=== PATIENT | female | born 1970 | race Asian ===

== ENCOUNTER 2016-11-30 15:02 | Emergency (ER) | payer OTHER ==
[2016-11-30 15:43] VITALS: BP 140/86; PULSE 53; TEMP 98.5; BMI 23.6
[2016-11-30] MEDS ORDERED: DIPHTH,PERTUSS(ACELL),TET 0.5 ML DISP.SYRIN IM ONE (16:36)
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
== END 2016-11-30 18:32 | disposition home or self-care (01) ==
LOC: JERFT 15:02
PROC: 3E0234Z Introduction of Serum, Toxoid and Vaccine into Muscle, Percutaneous Approach (ICD-10-PCS; principal; 2016-11-30)
DX: S91.312A Laceration without foreign body, left foot, initial encounter (principal); W26.0XXA Contact with knife, initial encounter; Y93.G1 Activity, food preparation and clean up; Y92.030 Kitchen in apartment as the place of occurrence of the external cause
CPT/HCPCS: 73630-TC-LT; 90715; 99281-25

== ENCOUNTER 2019-02-21 14:51 | Observation (INO) | payer OTHER ==
[2019-02-21 15:31] LABS: EOS % 4.8 % (0-4.5); HEMATOCRIT 43.8 % (32.4-45.2); HEMOGLOBIN 14.5 GM/dL (10.7-15.3); LYMPH % 32.3 % (8-40); MCH 32.7 pg (25.7-33.7); MEAN CELL VOLUME 98.8 fl (80-96); MEAN PLT VOLUME 8.2 fl (7.5-11.1); NEUT % 54.9 % (42.8-82.8); PLATELET COUNT 247 K/MM3 (134-434); RBC 4.43 M/mm3 (3.60-5.2); RDW 12.5 % (11.6-15.6); WHITE BLOOD COUNT 5.2 K/mm3 (4.0-10.0)
--- NOTE | 2019-02-21 15:33 | PDOC ---
Rapid Medical Evaluation Chief Complaint: Chest Pain Time Seen by Provider: 02/21/19 15:00 Medical Evaluation: Allergies Allergy/AdvReac Type Severity Reaction Status Date / Time aspirin AdvReac upset Verified 02/21/19 15:03 stomach Vital Signs Temp Pulse Resp BP Pulse Ox 98.2 F 62 19 160/94 100 02/21/19 14:55 02/21/19 14:55 02/21/19 14:55 02/21/19 14:55 02/21/19 14:55 02/21/19 15:30 Pt c/o: LSCP pressure x 3 hrs radiating to left back, no sob, no fever/cough Pt on brief exam: mildly elevated bp, no reproducible cp Pt ordered for: cardiac w/u Pt to proceed to the ED Discharge Disposition - Diagnosis Chest pain - Referrals - Patient Instructions - Post Discharge Activity
[2019-02-21 15:35] LABS: URINE APPEARANCE CLEAR; URINE BILIRUBIN NEGATIVE (NEGATIVE); URINE COLOR YELLOW; URINE GLUCOSE (UA) NEGATIVE (NEGATIVE); URINE KETONE NEGATIVE (NEGATIVE); URINE LEUK ESTERASE TRACE (NEGATIVE); URINE NITRITE NEGATIVE (NEGATIVE); URINE PROTEIN NEGATIVE (NEGATIVE); URINE UROBILINOGEN 0.2 mg/dL (0.2-1.0)
[2019-02-21 15:46] LABS: EPI CELLS 2.8 /HPF (0-5/HPF); URINE RBC 0.5 /hpf (0-4); URINE WBC 3.4 /hpf (0-5)
[2019-02-21 15:47] LABS: HYALINE CASTS 0.73 /lpf (0-8); URINE BACTERIA 5.9 /hpf (NEGATIVE)
[2019-02-21 16:00] LABS: ALBUMIN 4.4 g/dl (3.4-5.0); ALK PHOS 105 U/L (45-117); ANION GAP 8 MMOL/L (8-16); BILIRUBIN,TOTAL 0.6 mg/dL (0.2-1); BLOOD UREA NITROGEN 10.5 mg/dL (7-18); CALCIUM 9.5 mg/dL (8.5-10.1); CHLORIDE 105 mmol/L (98-107); CO2 30 mmol/L (21-32); CREATININE 0.8 mg/dL (0.55-1.3); GLUCOSE,RANDOM 87 mg/dL (74-106); POTASSIUM 3.5 mmol/L (3.5-5.1); SGOT/AST 19 U/L (15-37); SGPT/ALT 32 U/L (13-61); SODIUM 143 mmol/L (136-145)
[2019-02-21] MEDS ORDERED: ASPIRIN 81 MG CHEWABLE TABLETS PO ONE (18:47)
--- NOTE | 2019-02-21 18:54 | PDOC ---
History of Present Illness - General Chief Complaint: Chest Pain Stated Complaint: CHEST PAIN Time Seen by Provider: 02/21/19 15:00 - History of Present Illness Initial Comments: 02/21/19 18:55 48 yo F HTN, HLD, GERD, PUD, presenting with L sided chest pain. States that it began around 1200, pressure sensation in chest, sharp radiation into back. Has been there unremittingly since then. Notably, patient saw her PCP on Feb 16 for "feeling unwell", higher BPs than normal for her, and pounding sensation in back of her head. The EKG at that time showed T wave inversions in the anterior leads concerning for ischemia, and her PCP set up an appointment with a photography manager for this [place] for r/o CAD. However, at that time she was not having the chest pain she is currently experiencing. Has not tried anything for the pain. Denies N/V, diaphoresis, FLANNERY, abd pain, urinary symptoms, fevers/chills, constipation/diarrhea. Endorses mild SOB, worsened by taking deep breath, and recent travel to [place] one month ago. Patient reports extensive cardiac disease and stroke history on both maternal and paternal sides of her family. Past History - Past Medical History Allergies/Adverse Reactions: Allergies Allergy/AdvReac Type Severity Reaction Status Date / Time aspirin AdvReac upset Verified 02/21/19 15:03 stomach Home Medications: Ambulatory Orders Amlodipine Besylate 5 mg PO DAILY 07/01/15 Lovastatin 5 mg PO DAILY 02/21/19 COPD: No HTN: Yes Hypercholesterolemia: Yes - Surgical History Abdominal Surgery: Yes (left ovary removal) - Psycho Social/Smoking Cessation Hx Smoking Status: No Smoking History: Never smoked Have you smoked in the past 12 months: No Number of Cigarettes Smoked Daily: 0 Information on smoking cessation initiated: No Hx Alcohol Use: No Drug/Substance Use Hx: No Substance Use Type: None Hx Substance Use Treatment: No *Physical Exam - Vital Signs Last Vital Signs Temp Pulse Resp BP Pulse Ox 98.2 F 62 19 160/94 100 02/21/19 14:55 02/21/19 14:55 02/21/19 14:55 02/21/19 14:55 02/21/19 14:55 - Physical Exam Comments: 02/21/19 18:59 Gen: well-developed, well-nourished, mild distress Neuro: AAOX4, CN II-XII intact, FTN intact, EOMI, PERRLA, 5/5 strength, SILT HEENT: atraumatic, normocephalic Neck: trachea midline, supple CV: regular rate, regular rhythm, no murmurs, rubs, or gallops Pulm: CTA b/l, no wheezing Abd: soft, non-distended, non-tender MSK: full ROM, intact pulses Extr: no edema, no deformities Skin: warm, dry Heart Score/ECG Review - History History: Moderately suspicious - Electrocardiogram EKG: Non specific repolarization disturbance - Age Age: 45-65 - Risk Factors Risk Factors Heart Score: Yes Hx Hypercholesterolemia, Yes Hx Hypertension, Yes Positive family hx of cardiac disease Based on the list above the patient has:: >/=3 risk factors or Hx atherosclerotic disease - Troponin Troponin: </= normal limit - Score Heart Score - Total: 5 ED Treatment Course - LABORATORY CBC & Chemistry Diagram: 02/21/19 15:15 02/21/19 15:15 - ADDITIONAL ORDERS Additional order review: Laboratory Results 02/21/19 02/21/19 02/21/19 15:15 15:15 15:15 D-Dimer < 215 Sodium Potassium Chloride Carbon Dioxide Anion Gap BUN Creatinine Est GFR (CKD-EPI)AfAm Est GFR (CKD-EPI)NonAf Random Glucose Calcium Total Bilirubin AST ALT Alkaline Phosphatase Creatine Kinase Troponin I Total Protein Albumin Urine Color Yellow Urine Appearance Clear Urine pH 8.0 Ur Specific [place] 1.002 L Urine Protein Negative Urine Glucose (UA) Negative Urine Ketones Negative Urine Blood Negative Urine Nitrite Negative Urine Bilirubin Negative Urine Urobilinogen 0.2 Ur Leukocyte Esterase Trace Urine WBC (Auto) 3.4 Urine RBC (Auto) 0.5 Urine Casts (Auto) 0.73 U Epithel Cells (Auto) 2.8 Urine Bacteria (Auto) 5.9 Urine HCG, Qual Negative 02/21/19 15:15 D-Dimer Sodium 143 Potassium 3.5 Chloride 105 Carbon Dioxide 30 Anion Gap 8 BUN 10.5 Creatinine 0.8 Est GFR (CKD-EPI)AfAm 100.33 Est GFR (CKD-EPI)NonAf 86.57 Random Glucose 87 Calcium 9.5 Total Bilirubin 0.6 AST 19 ALT 32 Alkaline Phosphatase 105 Creatine Kinase 94 Troponin I < 0.02 Total Protein 8.0 Albumin 4.4 Urine Color Urine Appearance Urine pH Ur Specific [place] Urine Protein Urine Glucose (UA) Urine Ketones Urine Blood Urine Nitrite Urine Bilirubin Urine Urobilinogen Ur Leukocyte Esterase Urine WBC (Auto) Urine RBC (Auto) Urine Casts (Auto) U Epithel Cells (Auto) Urine Bacteria (Auto) Urine HCG, Qual 02/21/19 15:15 RBC 4.43 MCV 98.8 H MCHC 33.0 RDW 12.5 MPV 8.2 Neutrophils % 54.9 D Lymphocytes % 32.3 D Monocytes % 7.0 Eosinophils % 4.8 H D Basophils % 1.0 Medical Decision Making - Medical Decision Making 02/21/19 19:00 Initial EKG performed at 1450: 61 bpm, normal sinus, T wave inversion in leads V2-V5. EKG performed at PCP appointment Jan 18: 49 bpm, sinus bradycardia, T wave inversions in leads V1-V6. Concern for ACS v PE. - initial trop negative, labs unremarkable, CXR without acute pathology - 2nd trop - 2nd EKG - aspirin 162 (patient with history of nonbleeding ulcers, benefit > risk) - ctm 02/21/19 19:31 Heart score 5, will admit patient. Give nitroglycerin for symptomatic relief. 02/21/19 20:26 2nd trop negative, patient feeling better post nitro. With heart score of 5, patient will be admitted. Discharge - Discharge Information Clinical Impression/Diagnosis: Chest pain - Follow up/Referral Referrals: ON STAFF,NOT [Primary Care Provider] - - Patient Discharge Instructions - Post Discharge Activity
[2019-02-21] MEDS ORDERED: ASPIRIN 81 MG CHEWABLE TABLETS ONE (19:15)
[2019-02-21] MEDS ORDERED: NITROGLYCERIN SUBLINGUAL 1/150 0.4 MG TAB SL ONE (19:30)
--- NOTE | 2019-02-21 19:53 | PDOC ---
Attending Attestation - Resident Resident Name: Екатерина Harmon - ED Attending Attestation I have performed the following: I have examined & evaluated the patient, The case was reviewed & discussed with the resident, I agree w/resident's findings & plan - HPI HPI: 02/21/19 22:00 see resident hpi - Physicial Exam PE: 02/21/19 22:00 agree with resident exam - Medical Decision Making 02/21/19 22:00 48-year-old female with chest pain Anterolateral ST/T wave abnormalities present Plan for observation on medical service for further evaluation 02/21/19 22:04
--- NOTE | 2019-02-21 21:19 | PN ---
Teaching Attending Note Name of Resident: Tara Stearns ATTENDING PHYSICIAN STATEMENT I saw and evaluated the patient. I reviewed the resident's note and discussed the case with the resident. I agree with the resident's findings and plan as documented. SUBJECTIVE: Patient is a 48 year old woman with a PMH of HTN, HLD, GERD and PUD presenting with left sided chest pain. States that it began around 1200, pressure sensation in chest, sharp radiation into back. Has been there unremittingly since then. Notably, patient saw her PCP on Feb 16 for "feeling unwell", higher BPs than normal for her, and pounding sensation in back of her head. The EKG at that time showed T wave inversions in the anterior leads concerning for ischemia , and her PCP set up an appointment with a floor person for this [place] for CAD work up. However, at that time she was not having the chest pain she is currently experiencing. Has not tried anything for the pain. Pain is worse with inspiration and she also has dyspnea on exertion. She denies nausea, vomiting, diaphoresis, headache , abdominal pain, urinary symptoms, fevers/chills or constipation/diarrhea. Recent travel to [place] one month ago. Patient reports extensive cardiac disease and stroke history on both maternal and paternal sides of her family. No obvious sick contacts. Denies smoking, alcohol or illicit drug use. Has irregular periods with one in May and another in December - her [employer] MD told her it is related to menopause. OBJECTIVE: Alert Vital Signs Period Temp Pulse Resp BP Sys/Rasheed Pulse Ox Last 24 Hr 98.2 F-98.3 F 62-68 17-19 152-160/94-98 100-100 HEENT: No Jaundice, eye redness or discharge, PERRLA, EOMI. Normocephalic, atraumatic. External ears are normal and hearing is grossly intact. No nasal discharge. Neck: Supple, nontender. No palpable adenopathy or thyromegaly. No JVD Chest: Good effort. Clear to auscultation and percussion. Heart: Regular. No S3, rub or murmur Abdomen: Not distended, soft, nontender and no HSM. No rebound or guarding. Normal bowel sounds. Ext: Peripheral pulses intact. No leg edema. Skin: Warm and dry. No petechiae, rash or ecchymosis. Neuro: Alert. Oriented x3. CN 2-12 grossly intact. Sensation grossly intact in all four extremities and DTR are symmetric. Psych: Appropriate mood and affect. Good insight. Home Medications Medication Instructions Recorded Amlodipine Besylate 5 mg PO DAILY 07/01/15 Lovastatin 5 mg PO DAILY 02/21/19 Abnormal Lab Results 02/21/19 02/21/19 15:15 15:15 MCV 98.8 H Eosinophils % 4.8 H D Ur Specific [place] 1.002 L ASSESSMENT AND PLAN: 1. Chest pain - Patient has risk factors for ACS. Now painfree in the ER. EKG shows sinus bradycardia with diffuse T wave inversion V1-4, and flattening V5-6 , aVF and aVL. Initial troponin is negative. CXR shows no acute pathology though the cardiac silhouette is deviated to the left. Will admit to telemetry to rule out ACS, get ECHO (?pericarditis), fasting lipid profile and TSH. Pneumothorax and/or autoimmune disorder are possible culprits. Will get chest CT , NANCY, ESR and CRP. Increase Lovastatin to 20 mg qd. Consult cardiology. Will continue comprehensive care for all of patients comorbid conditions. 2. Uncontrolled Hypertension - Restart amlodipine 5 mg po q am. Revise regimen by adding Lisinopril 20 mg q HS and HCTZ 12.5 mg q am - to ensure round-the- clock excellent BP control and classification counselor patient on the injurious effects of uncontrolled hypertension. Nonpharmacologic measures to control hypertension like weight loss, salt restriction and exercise discussed. Importance of adherence to treatment regimen and attainment of normotension emphasized. 3. DVT prophylaxis - Lovenox 40 mg SQ q 24 hours. 4. Advance directives - Full code
[2019-02-21] MEDS: ENOXAPARIN NA (PORCINE) 40 MG/0.4 ML DISP.SYRIN SQ SCH (22:07)
--- NOTE | 2019-02-21 22:17 | HP ---
CHIEF COMPLAINT: Pleuritic chest pain PCP: Dr. Bazan Manager Credit: Dr. Garcia HISTORY OF PRESENT ILLNESS: 48 yo F HTN, HLD, GERD, PUD, and gastritis presenting with L sided chest pain. States that it began around 1200, sharp radiation into back and worse on inspiration. Has been there unremittingly since then. The patient reports she called her who advised she come to the ED. Notably, patient saw her PCP on Feb 16 for "feeling unwell", higher BPs than normal for her, and headache at the back of her head. Her PCP set up an appointment with a lecturer in marketing for this April for r/o CAD. The patient states she has been noticing this chest pain for a few months and that it is worse on inspiration. She states she was an avid hiker but noticed recently that her activity is limited because of the pain she feels on inspiration, she states she is limited by pain after walking 1 mile which is unusual for her. She states the pain in her chest is not reproducible to palpation, and is worse with inspiration. She states she is very anxious about her pain which is why she saw her PCP recently and also why she came to the ED. She denies orthopnea, cough, recent sick contacts, feeling feverish, abdominal pain, nausea, vomiting , diarrhea, constipation or swelling in her legs. She endorses headache, pleuritic chest pain, and trouble sleeping. ER course was notable for: (1) EKG with sinus bradycardia (58), and TWI in v1-4 (unchanged from previous EKGs), QTc 435 (2) 0.4 mg Nitrostat given, patient reports improved pain (3) 162mg ASA given Recent Travel: 1 month ago traveled to [place] with family PAST MEDICAL HISTORY: HTN, HLD, GERD, PUD, and gastritis PAST SURGICAL HISTORY: L ovary removed 2 years ago Social History: Smoking: denies, has never smoked Alcohol: denies Drugs: denies HOME MEDICATIONS: Home Medications Medication Instructions Recorded Amlodipine Besylate 5 mg PO DAILY 07/01/15 Lovastatin 5 mg PO DAILY 02/21/19 REVIEW OF SYSTEMS CONSTITUTIONAL: Absent: fever, chills, diaphoresis, generalized weakness, malaise, loss of appetite, weight change HEENT: Absent: rhinorrhea, nasal congestion, throat pain, throat swelling, difficulty swallowing, mouth swelling, ear pain, eye pain, visual changes CARDIOVASCULAR: chest pain, Absent: syncope, palpitations, irregular heart rate, lightheadedness, peripheral edema RESPIRATORY: pain in inspiration limiting exercise capacity Absent: cough, shortness of breath, dyspnea with exertion, orthopnea, wheezing, stridor, hemoptysis GASTROINTESTINAL: Absent: abdominal pain, abdominal distension, nausea, vomiting, diarrhea, constipation, melena, hematochezia GENITOURINARY: Absent: dysuria, frequency, urgency, hesitancy, hematuria, flank pain, genital pain MUSCULOSKELETAL: Absent: myalgia, arthralgia, joint swelling, back pain, neck pain SKIN: Absent: rash, itching, pallor HEMATOLOGIC/IMMUNOLOGIC: Absent: easy bleeding, easy bruising, lymphadenopathy, frequent infections ENDOCRINE: Absent: unexplained weight gain, unexplained weight loss, heat intolerance, cold intolerance NEUROLOGIC: Absent: headache, focal weakness or paresthesias, dizziness, unsteady gait, seizure, mental status changes, bladder or bowel incontinence PSYCHIATRIC: Absent: anxiety, depression, suicidal or homicidal ideation, hallucinations. PHYSICAL EXAMINATION Vital Signs - 24 hr 02/21/19 02/21/19 14:55 20:43 Temperature 98.2 F 98.3 F Pulse Rate 62 Pulse Rate [ 68 Apical] Respiratory 19 17 Rate Blood Pressure 160/94 Blood Pressure 152/98 [Arm] O2 Sat by Pulse 100 100 Oximetry (%) GENERAL: Awake, alert, and fully oriented, in no acute distress. HEAD: Normal with no signs of trauma. EYES: Pupils equal, round and reactive to light, extraocular movements intact, sclera anicteric, conjunctiva clear. No lid lag. EARS, NOSE, THROAT: Ears normal, nares patent, oropharynx clear without exudates. Moist mucous membranes. NECK: Normal range of motion, supple without lymphadenopathy, JVD, or masses. LUNGS: Breath sounds equal, clear to auscultation bilaterally. No wheezes, and no crackles. No accessory muscle use. HEART: Regular rate and rhythm, normal S1 and S2 without murmur, rub or gallop. ABDOMEN: Soft, nontender, not distended, normoactive bowel sounds, no guarding, no rebound, no masses. No hepatomegaly or splenomegaly. MUSCULOSKELETAL: Normal range of motion at all joints. No bony deformities or tenderness. No CVA tenderness. UPPER EXTREMITIES: 2+ pulses, warm, well-perfused. No cyanosis. No clubbing. No peripheral edema. LOWER EXTREMITIES: 2+ pulses, warm, well-perfused. No calf tenderness. No peripheral edema. NEUROLOGICAL: Cranial nerves II-XII intact. Normal speech. PSYCHIATRIC: Cooperative. Good eye contact. Appropriate mood and affect. SKIN: Warm, dry, normal turgor, acneiform rash in malar distribution, normal capillary refill. Laboratory Results - last 24 hr 02/21/19 02/21/19 02/21/19 15:15 15:15 15:15 WBC 5.2 RBC 4.43 Hgb 14.5 Hct 43.8 MCV 98.8 H MCH 32.7 MCHC 33.0 RDW 12.5 Plt Count 247 MPV 8.2 Absolute Neuts (auto) 2.8 Neutrophils % 54.9 D Lymphocytes % 32.3 D Monocytes % 7.0 Eosinophils % 4.8 H D Basophils % 1.0 Nucleated RBC % 0 D-Dimer < 215 Sodium 143 Potassium 3.5 Chloride 105 Carbon Dioxide 30 Anion Gap 8 BUN 10.5 Creatinine 0.8 Est GFR (CKD-EPI)AfAm 100.33 Est GFR (CKD-EPI)NonAf 86.57 Random Glucose 87 Calcium 9.5 Total Bilirubin 0.6 AST 19 ALT 32 Alkaline Phosphatase 105 Creatine Kinase 94 Troponin I < 0.02 Total Protein 8.0 Albumin 4.4 Urine Color Urine Appearance Urine pH Ur Specific [place] Urine Protein Urine Glucose (UA) Urine Ketones Urine Blood Urine Nitrite Urine Bilirubin Urine Urobilinogen Ur Leukocyte Esterase Urine WBC (Auto) Urine RBC (Auto) Urine Casts (Auto) U Epithel Cells (Auto) Urine Bacteria (Auto) Urine HCG, Qual 02/21/19 02/21/19 02/21/19 15:15 15:15 19:25 WBC RBC Hgb Hct MCV MCH MCHC RDW Plt Count MPV Absolute Neuts (auto) Neutrophils % Lymphocytes % Monocytes % Eosinophils % Basophils % Nucleated RBC % D-Dimer Sodium Potassium Chloride Carbon Dioxide Anion Gap BUN Creatinine Est GFR (CKD-EPI)AfAm Est GFR (CKD-EPI)NonAf Random Glucose Calcium Total Bilirubin AST ALT Alkaline Phosphatase Creatine Kinase Troponin I < 0.02 Total Protein Albumin Urine Color Yellow Urine Appearance Clear Urine pH 8.0 Ur Specific [place] 1.002 L Urine Protein Negative Urine Glucose (UA) Negative Urine Ketones Negative Urine Blood Negative Urine Nitrite Negative Urine Bilirubin Negative Urine Urobilinogen 0.2 Ur Leukocyte Esterase Trace Urine WBC (Auto) 3.4 Urine RBC (Auto) 0.5 Urine Casts (Auto) 0.73 U Epithel Cells (Auto) 2.8 Urine Bacteria (Auto) 5.9 Urine HCG, Qual Negative ASSESSMENT/PLAN: 48 yo F HTN, HLD, GERD, PUD, and gastritis presenting with L sided chest pain. States that it began around 1200, sharp radiation into back and worse on inspiration. # Chest Pain- Patient has ACS risk factors including HTN, HLD and family history of cardiovascular disease on both sides. EKG shows sinus bradycardia with diffuse T wave inversion V1-4, and flattening V5-6, aVF and aVL. Troponin' s were negative x2 in the ED. CXR without acute pathology. Admitting patient to telemetry for r/o ACS. Given the pleuritic nature of the pain and the subacute timeline of symptoms (patient reports it has been ongoing/ worsening for at least a couple of weeks) should also consider autoimmune cause or pneumothorax. - repeat EKG in AM - repeat troponin in AM - Echo - lipid profile - TSH - To r/o autoimmune etiology/ pneumothorax: - chest CT - NANCY - ESR - CRP - cardiology consult - Patient on lovastatin 5 daily, confirm medication dosing with pharmacy, though patient is reliable historian. Will increase dose to 20mg daily given her symptoms and risk factors. # HTN- in ED patient hypertensive to 152/98 reports she is compliant with her home amlodipine 5mg daily - Restart amlodipine 5 mg daily - Add Lisinopril 20 mg at night - Add HCTZ 12.5 mg in the morning # FEN - replete lytes PRN - low sodium/ low fat/ low cholesterol diet # PPX DVT- lovenox 40sq daily # Dispo- Full code, admit to tele for ACS rule out and cardiac workup Visit type - Emergency Visit Emergency Visit: Yes ED Registration Date: 02/21/19 Care time: The patient presented to the Emergency Department on the above date and was hospitalized for further evaluation of their emergent condition. - New Patient This patient is new to me today: Yes Date on this admission: 02/22/19 - Critical Care Critical Care patient: No ATTENDING PHYSICIAN STATEMENT I saw and evaluated the patient. I reviewed the resident's note and discussed the case with the resident. I agree with the resident's findings and plan as documented. SUBJECTIVE: OBJECTIVE: ASSESSMENT AND PLAN:
[2019-02-22 00:29] VITALS: BMI 24.4
[2019-02-22 06:54] LABS: EOS % 5.2 % (0-4.5); HEMATOCRIT 38.6 % (32.4-45.2); HEMOGLOBIN 13.2 GM/dL (10.7-15.3); LYMPH % 45.8 % (8-40); MCH 33.6 pg (25.7-33.7); MCHC 34.1 g/dl (32.0-36.0); MEAN CELL VOLUME 98.4 fl (80-96); MEAN PLT VOLUME 8.3 fl (7.5-11.1); MONO % 6.9 % (3.8-10.2); NEUT % 41.1 % (42.8-82.8); PLATELET COUNT 216 K/MM3 (134-434); RBC 3.92 M/mm3 (3.60-5.2); RDW 12.4 % (11.6-15.6); WHITE BLOOD COUNT 5.6 K/mm3 (4.0-10.0)
--- NOTE | 2019-02-22 07:01 | PN ---
Physical Exam: SUBJECTIVE: Patient seen and examined 48 y/o F pmh of htn, gerd, hld, PUD, and gastritis presented w/ sharp Left sided chest pain of few hour duration that began around 12 pm that radiated to the back and worsened by inspiration w/ no improvement since onset. Pt has recently visited her pcp for "feeling unwell" on 02/16, with elevated bp and occipital headaches. She is scheduled to see a optical coating technician on april to r/o CAD. Pt reports similar symptoms for several months now, which has limited her hiking activity due to chest pain on inspiration. She is only able to tolerate one mile of walking before feeling pain. Reports no pain on palpation. She admits to headache, pleuritic chest pain, and trouble sleeping. She denies f/c/n /v, sob, orthopnea, cough, recent sick contacts, abdominal pain, diarrhea, constipation or swelling in her legs. ER course was notable for: (1) EKG with sinus bradycardia (58), and TWI in v1-4 (unchanged from previous EKGs), QTc 435 (2) 0.4 mg Nitrostat given, patient reports improved pain (3) 162mg ASA given OBJECTIVE: Vital Signs Last Vital Signs Temp Pulse Resp BP Pulse Ox 97.9 F 53 L 18 129/77 98 02/22/19 06:00 02/22/19 06:00 02/22/19 06:00 02/22/19 06:00 02/22/19 00:19 GENERAL: The patient is awake, alert, and fully oriented, in no acute distress. NECK: Trachea midline, full range of motion, supple. LUNGS: Breath sounds equal, clear to auscultation bilaterally, no wheezes, no crackles, no accessory muscle use. HEART: Regular rate and rhythm, S1, S2 without murmur, rub or gallop. ABDOMEN: Soft, nontender, nondistended, normoactive bowel sounds, no guarding, no rebound, no hepatosplenomegaly, no masses. EXTREMITIES: 2+ pulses, warm, well-perfused, no edema. NEUROLOGICAL: Cranial nerves II through XII grossly intact. Normal speech, gait not observed. PSYCH: Normal mood, normal affect. SKIN: Warm, dry, normal turgor, no rashes or lesions noted Laboratory Results - last 24 hr CBC,CMP WBC 5.6 K/mm3 (4.0-10.0) 02/22/19 05:25 RBC 3.92 M/mm3 (3.60-5.2) 02/22/19 05:25 Hgb 13.2 GM/dL (10.7-15.3) 02/22/19 05:25 Hct 38.6 % (32.4-45.2) 02/22/19 05:25 MCV 98.4 fl (80-96) H 02/22/19 05:25 MCH 33.6 pg (25.7-33.7) 02/22/19 05:25 MCHC 34.1 g/dl (32.0-36.0) 02/22/19 05:25 RDW 12.4 % (11.6-15.6) 02/22/19 05:25 Plt Count 216 K/MM3 (134-434) 02/22/19 05:25 MPV 8.3 fl (7.5-11.1) 02/22/19 05:25 Absolute Neuts (auto) 2.3 K/mm3 (1.5-8.0) 02/22/19 05:25 Neutrophils % 41.1 % (42.8-82.8) L D 02/22/19 05:25 Lymphocytes % 45.8 % (8-40) H D 02/22/19 05:25 Monocytes % 6.9 % (3.8-10.2) 02/22/19 05:25 Eosinophils % 5.2 % (0-4.5) H 02/22/19 05:25 Basophils % 1.0 % (0-2.0) 02/22/19 05:25 Nucleated RBC % 0 % (0-0) 02/22/19 05:25 Sodium 143 mmol/L (136-145) 02/21/19 15:15 Potassium 3.5 mmol/L (3.5-5.1) 02/21/19 15:15 Chloride 105 mmol/L (98-107) 02/21/19 15:15 Carbon Dioxide 30 mmol/L (21-32) 02/21/19 15:15 Anion Gap 8 MMOL/L (8-16) 02/21/19 15:15 BUN 10.5 mg/dL (7-18) 02/21/19 15:15 Creatinine 0.8 mg/dL (0.55-1.3) 02/21/19 15:15 Est GFR (CKD-EPI)AfAm 100.33 02/21/19 15:15 Est GFR (CKD-EPI)NonAf 86.57 02/21/19 15:15 Random Glucose 87 mg/dL (74-106) 02/21/19 15:15 Calcium 9.5 mg/dL (8.5-10.1) 02/21/19 15:15 Total Bilirubin 0.6 mg/dL (0.2-1) 02/21/19 15:15 AST 19 U/L (15-37) 02/21/19 15:15 ALT 32 U/L (13-61) 02/21/19 15:15 Alkaline Phosphatase 105 U/L (45-117) 02/21/19 15:15 Creatine Kinase 94 U/L (26-192) 02/21/19 15:15 Troponin I < 0.02 ng/ml (0.00-0.05) 02/21/19 19:25 Total Protein 8.0 g/dl (6.4-8.2) 02/21/19 15:15 Albumin 4.4 g/dl (3.4-5.0) 02/21/19 15:15 CBC, BMP 02/22/19 05:25 Active Medications 2 Current Medications Amlodipine Besylate (Norvasc -) 5 mg PO DAILY [facility] Atorvastatin Calcium (Lipitor -) 10 mg PO HS [facility] Enoxaparin Sodium (Lovenox -) 40 mg SQ DAILY [facility] Last Admin: 02/21/19 22:07 Dose: 40 mg Hydrochlorothiazide (Hctz -) 12.5 mg PO DAILY [facility] Lisinopril (Prinivil) 20 mg PO HS [facility] Ambulatory Orders Amlodipine Besylate 5 mg PO DAILY 07/01/15 Lovastatin 5 mg PO DAILY 02/21/19 Vitamin B12 Injection - WEEKLY 02/22/19 ASSESSMENT/PLAN: 48 y/o F pmh of htn, gerd, hld, PUD, and gastritis presented w/ sharp Left sided chest pain of few hour duration is being managed for ACS r/o #Chest Pain - Echo done- waiting for official read - Cardiology consult- discussed with Cardiology, they will do nuclear stress test - Patient on lovastatin 5 daily, confirm medication dosing with pharmacy, though patient is reliable historian. Will increase dose to 20mg daily given her symptoms and risk factors. -To r/o autoimmune etiology/ pneumothorax: - chest CT - NANCY - ESR - CRP # HTN- in ED patient hypertensive to 152/98 reports she is compliant with her home amlodipine 5mg daily - Restart amlodipine 5 mg daily - Add Lisinopril 20 mg at night - Add HCTZ 12.5 mg in the morning # FEN - replete lytes PRN - low sodium/ low fat/ low cholesterol diet # PPX DVT- lovenox 40sq daily # Dispo- Full code, admit to tele for ACS rule out and cardiac workup ATTENDING PHYSICIAN STATEMENT I saw and evaluated the patient. I reviewed the resident's note and discussed the case with the resident. I agree with the resident's findings and plan as documented. SUBJECTIVE: OBJECTIVE: ASSESSMENT AND PLAN:
[2019-02-22 07:42] LABS: CHOLESTEROL 186 mg/dL (50-200); HDL CHOLESTEROL 55 mg/dL (40-60); LDL CHOLESTEROL (ONLY SJRH) 104 mg/dL (5-100); TRIGLYCERIDES 118 mg/dL (0-150)
[2019-02-22 07:47] LABS: ALBUMIN 3.9 g/dl (3.4-5.0); BILIRUBIN,TOTAL 0.6 mg/dL (0.2-1); BLOOD UREA NITROGEN 13.3 mg/dL (7-18); CALCIUM 9.2 mg/dL (8.5-10.1); CREATININE 0.8 mg/dL (0.55-1.3); MAGNESIUM 2.4 mg/dL (1.8-2.4); PHOSPHOROUS 4.6 mg/dL (2.5-4.9); POTASSIUM 3.5 mmol/L (3.5-5.1)
[2019-02-22] MEDS ORDERED: LOVASTATIN 5 MG PO SCH (10:00)
[2019-02-22] MEDS ORDERED: HYDROCHLOROTHIAZIDE 12.5 MG CAPSULE (FP) PO SCH (10:00)
[2019-02-22] MEDS ORDERED: amLODIPine BESYLATE 5 MG TABLET (FP) PO SCH (10:00)
--- NOTE | 2019-02-22 10:03 | PN ---
Teaching Attending Note Name of Resident: Rajendra Blankenship ATTENDING PHYSICIAN STATEMENT I saw and evaluated the patient. I reviewed the resident's note and discussed the case with the resident. I agree with the resident's findings and plan as documented. SUBJECTIVE: Patient is comfortable with no further chest pain, no nausea or vomiting. OBJECTIVE: Vital Signs Temperature 97.9 F 02/22/19 06:00 Pulse Rate 53 L 02/22/19 06:00 Respiratory Rate 18 02/22/19 06:00 Blood Pressure 129/77 02/22/19 06:00 O2 Sat by Pulse Oximetry (%) 98 02/22/19 00:19 GENERAL: The patient is awake, alert, and fully oriented, in no acute distress. HEAD: Normal with no signs of trauma. EYES: PERRL, extraocular movements intact, sclera anicteric, conjunctiva clear. ENT: Ears normal, oropharynx clear without exudates, moist mucous membranes. NECK: Trachea midline, full range of motion, supple. LUNGS: Breath sounds equal, clear to auscultation bilaterally, no wheezes, no crackles, no accessory muscle use. HEART: Regular rate and rhythm, S1, S2 without murmur, rub or gallop. ABDOMEN: Soft, nontender, nondistended, normoactive bowel sounds, no guarding, no rebound, no hepatosplenomegaly, no masses. EXTREMITIES: 2+ pulses, warm, well-perfused, no edema. NEUROLOGICAL: Cranial nerves II through XII grossly intact. Normal speech, gait not observed. PSYCH: Normal mood, normal affect. SKIN: Warm, dry, normal turgor, no rashes or lesions notedCBCD WBC 5.6 K/mm3 (4.0-10.0) 02/22/19 05:25 RBC 3.92 M/mm3 (3.60-5.2) 02/22/19 05:25 Hgb 13.2 GM/dL (10.7-15.3) 02/22/19 05:25 Hct 38.6 % (32.4-45.2) 02/22/19 05:25 MCV 98.4 fl (80-96) H 02/22/19 05:25 MCHC 34.1 g/dl (32.0-36.0) 02/22/19 05:25 RDW 12.4 % (11.6-15.6) 02/22/19 05:25 Plt Count 216 K/MM3 (134-434) 02/22/19 05:25 MPV 8.3 fl (7.5-11.1) 02/22/19 05:25 CMP Sodium 144 mmol/L (136-145) 02/22/19 05:25 Potassium 3.5 mmol/L (3.5-5.1) 02/22/19 05:25 Chloride 107 mmol/L (98-107) 02/22/19 05:25 Carbon Dioxide 27 mmol/L (21-32) 02/22/19 05:25 Anion Gap 9 MMOL/L (8-16) 02/22/19 05:25 BUN 13.3 mg/dL (7-18) 02/22/19 05:25 Creatinine 0.8 mg/dL (0.55-1.3) 02/22/19 05:25 Random Glucose 81 mg/dL (74-106) 02/22/19 05:25 Calcium 9.2 mg/dL (8.5-10.1) 02/22/19 05:25 Total Bilirubin 0.6 mg/dL (0.2-1) 02/22/19 05:25 AST 21 U/L (15-37) 02/22/19 05:25 ALT 29 U/L (13-61) 02/22/19 05:25 Alkaline Phosphatase 93 U/L (45-117) 02/22/19 05:25 Total Protein 7.0 g/dl (6.4-8.2) 02/22/19 05:25 Albumin 3.9 g/dl (3.4-5.0) 02/22/19 05:25 CARDIAC ENZYMES Creatine Kinase 94 U/L (26-192) 02/21/19 15:15 Troponin I < 0.02 ng/ml (0.00-0.05) 02/21/19 19:25 Current Medications Generic Name Dose Route Start Last Admin Trade Name Freq PRN Reason Stop Dose Admin Amlodipine Besylate 5 mg 02/22/19 10:00 Norvasc - PO DAILY [facility] Atorvastatin Calcium 10 mg 02/22/19 22:00 Lipitor - PO HS [facility] Enoxaparin Sodium 40 mg 02/21/19 22:00 02/21/19 22:07 Lovenox - SQ 40 mg DAILY [facility] Administration Hydrochlorothiazide 12.5 mg 02/22/19 10:00 Hctz - PO DAILY [facility] Lisinopril 20 mg 02/22/19 22:00 Prinivil PO HS [facility] Home Medications Medication Instructions Recorded Amlodipine Besylate 5 mg PO DAILY 07/01/15 Lovastatin 5 mg PO DAILY 02/21/19 Vitamin B12 Injection - WEEKLY 02/22/19 ECHO: negative , nl function ASSESSMENT AND PLAN: 48 yo F HTN, HLD, GERD, PUD, and gastritis presenting with L sided chest pain # acute chest pain r/o acs, cardio consult . trops are negative, echo normal , stress test no ischemic changes #Htn controlled continue meds. #HLD : continue Lipitor DVT px: Lovenox patient can be discharged home
[2019-02-22] MEDS ORDERED: PT OWN MED DRAWER 7, Y5N ONE (10:15)
[2019-02-22] MEDS: ENOXAPARIN NA (PORCINE) 40 MG/0.4 ML DISP.SYRIN SQ SCH (10:22)
--- NOTE | 2019-02-22 10:48 | CON.CARD ---
Consult Consult Specialty:: cardiology Referred by:: justice mcbride Reason for Consultation:: Chest pain - History of Present Illness Chief Complaint: chest pain History of Present Illness: 48 year old female with a pmhx of htn and hld presenting with chest pain. Was at work when developed central chest pressure and sob which resolved after nitro in ER. No symptoms since. Walks a lot and hikes she had an episode 2 weeks ago where she felt sob with hiking (but had also taken few months off prior). No pnd, orthopnea, or edema. No palpitations or syncope. - History Source History Provided By: Patient, Medical Record - Past Medical History Cardio/Vascular: Yes: HTN ...LMP: 01/16/19 - Alcohol/Substance Use Hx Alcohol Use: No - Smoking History Smoking history: Never smoked Have you smoked in the past 12 months: No Aproximately how many cigarettes per day: 0 Home Medications - Allergies Allergies/Adverse Reactions: Allergies Allergy/AdvReac Type Severity Reaction Status Date / Time aspirin AdvReac Mild Nausea Verified 02/22/19 06:18 - Home Medications Home Medications: Ambulatory Orders Amlodipine Besylate 5 mg PO DAILY 07/01/15 Lovastatin 5 mg PO DAILY 02/21/19 Vitamin B12 Injection - WEEKLY 02/22/19 Vital Signs: Vital Signs Temperature 97.5 F L 02/22/19 10:00 Pulse Rate 48 L 02/22/19 10:00 Respiratory Rate 16 02/22/19 10:00 Blood Pressure 138/78 02/22/19 10:00 O2 Sat by Pulse Oximetry (%) 98 02/22/19 00:19 Constitutional: Yes: No Distress Neck: Yes: WNL Respiratory: Yes: CTA Bilaterally Gastrointestinal: Yes: Soft Cardiovascular: Yes: Regular Rate and Rhythm JVD: No Carotid Bruit: No PMI: Non-Displaced Heart Sounds: Yes: S1, S2 Murmur: No: Systolic Murmur Edema: No - Other Data Labs, Other Data: CBC, BMP 02/22/19 05:25 02/22/19 05:25 Troponin, BNP 02/21/19 02/21/19 15:15 19:25 Troponin I < 0.02 < 0.02 Troponin, BNP 02/21/19 02/21/19 15:15 19:25 Troponin I < 0.02 < 0.02 Imaging - Results Chest X-ray: Report Reviewed EKG: Image Reviewed Assessment/Plan 48 year old with a pmhx of htn and hld admitted with chest pain and sob. 1) Chest pain -CE's neg x 2 finish dev BP little up and restarted amlodipine. Team added lisinopril -EKG with sinus bradycardia 50s with anterior T wave abnormalities. However unchanged from 2013 ekg. Walked quick pace with me in hallway and felt fine. Will plan for echocardiogram Plan for nuclear exercise stress test.
[2019-02-22 12:11] VITALS: PULSE 57
--- NOTE | 2019-02-22 13:34 | EKG ---
Test Reason : Blood Pressure : / mmHG Vent. Rate : 050 BPM Atrial Rate : 050 BPM P-R Int : 160 ms QRS Dur : 086 ms QT Int : 494 ms P-R-T Axes : 063 070 051 degrees QTc Int : 450 ms SINUS BRADYCARDIA NONSPECIFIC T WAVE ABNORMALITY ABNORMAL ECG WHEN COMPARED WITH ECG OF 21-FEB-2019 19:17, NO SIGNIFICANT CHANGE WAS FOUND Confirmed by FRANCIA HERNADEZ MD ([id number]) on 02/22/2019 1:33:45 PM Referred By: DEANNA VILLA Confirmed By:FRANCIA HERNADEZ MD
--- NOTE | 2019-02-22 13:35 | EKG ---
Test Reason : Blood Pressure : / mmHG Vent. Rate : 058 BPM Atrial Rate : 058 BPM P-R Int : 148 ms QRS Dur : 076 ms QT Int : 444 ms P-R-T Axes : 037 060 035 degrees QTc Int : 435 ms SINUS BRADYCARDIA T WAVE ABNORMALITY, CONSIDER ANTERIOR ISCHEMIA ABNORMAL ECG WHEN COMPARED WITH ECG OF 21-FEB-2019 14:49, NO SIGNIFICANT CHANGE WAS FOUND Confirmed by MARICARMEN HADDAD, FRANCIA ([id number]) on 02/22/2019 1:35:13 PM Referred By: Confirmed By:FRANCIA HERNADEZ MD
--- NOTE | 2019-02-22 13:36 | EKG ---
Test Reason : Blood Pressure : / mmHG Vent. Rate : 061 BPM Atrial Rate : 061 BPM P-R Int : 148 ms QRS Dur : 082 ms QT Int : 426 ms P-R-T Axes : 047 070 -21 degrees QTc Int : 428 ms NORMAL SINUS RHYTHM MINIMAL VOLTAGE CRITERIA FOR LVH, MAY BE NORMAL VARIANT T WAVE ABNORMALITY, CONSIDER ANTERIOR ISCHEMIA ABNORMAL ECG WHEN COMPARED WITH ECG OF 06-MAY-2012 19:09, NONSPECIFIC T WAVE ABNORMALITY NOW EVIDENT IN INFERIOR LEADS NONSPECIFIC T WAVE ABNORMALITY NOW EVIDENT IN LATERAL LEADS Confirmed by FRANCIA HERNADEZ MD ([id number]) on 02/22/2019 1:35:46 PM Referred By: Confirmed By:FRANCIA HERNADEZ MD
--- NOTE | 2019-02-22 14:17 | ECHO ---
Name: DARLINE MURPHY Exam:Adult Echocardiogram Study Date: 02/22/2019 09:27 AM Age: 48 yrs Reason For Study: R/O PERICARDIAL EFFUSION Height: 60 in Weight: 127 lb BSA: 1.5 m2 MMode/2D Measurements & Calculations IVSd: 0.87 cm Ao root diam: 2.5 cm LVIDd: 4.7 cm LA dimension: 2.8 cm LVIDs: 3.1 cm LVPWd: 0.78 cm EDV(Teich): 99.8 ml LVOT diam: 2.0 cm ESV(Teich): 38.7 ml Doppler Measurements & Calculations MV E max bayron: 72.6 cm/sec Ao V2 max: 140.7 cm/sec MV A max bayron: 55.3 cm/sec Ao max P.9 mmHg MV E/A: 1.3 MV dec time: 0.19 sec MARK(V,D): 1.9 cm2 LV V1 max P.9 mmHg TR max bayron: 179.6 cm/sec LV V1 max: 84.4 cm/sec TR max P.0 mmHg PA V2 max: 77.1 cm/sec PI end-d bayron: 64.1 cm/sec PA max P.4 mmHg Med Peak E' Bayron: 6.9 cm/sec Med E/e': 10.5 Lat Peak E' Bayron: 7.7 cm/sec Lat E/e': 9.4 Procedure A complete two-dimensional transthoracic echocardiogram was performed (2D, M-mode, Doppler and color flow Doppler). Left Ventricle The left ventricular size, thickness and function are normal. The left ventricular ejection fraction is normal. Ejection Fraction = 55-60%. The left ventricular wall motion is normal. Right Ventricle The right ventricle is normal in size and function. Atria Normal left and right atrial size and function. Mitral Valve There is no mitral regurgitation noted. Tricuspid Valve There is trace tricuspid regurgitation. Right ventricular systolic pressure is normal. Aortic Valve No hemodynamically significant valvular aortic stenosis. No aortic regurgitation is present. Pulmonic Valve There is no pulmonic valvular regurgitation. Great Vessels The aortic root is normal size. Pericardium/Pleura Trivial pericardial effusion not hemodynamically significant. Interpretation Summary The left ventricular size, thickness and function are normal The right ventricle is normal in size and function. There is trace tricuspid regurgitation. Trivial pericardial effusion not hemodynamically significant MD Haris Veronica 02/22/2019 02:17 PM
[2019-02-22 15:51] VITALS: BP 125/77; TEMP 97.6
--- NOTE | 2019-02-22 16:24 | DS ---
Physical Exam: SUBJECTIVE: Patient seen and examined and appears in normal state of health. Patient is stable, asymptomatic, afebrile, and has no further c/o or symptoms OBJECTIVE: Vital Signs Period Temp Pulse Resp BP Sys/Rasheed Pulse Ox Last 24 Hr 97.5 F-98.5 F 48-69 16-20 125-152/67-98 98-100 PHYSICAL EXAM GENERAL: The patient is awake, alert, and fully oriented, in no acute distress. EYES: PERRL, extraocular movements intact, ENT: moist mucous membranes. NECK: Supple. No reproducible pain LUNGS: Breath sounds equal, clear to auscultation bilaterally, no wheezes, no crackles HEART: Regular rate and rhythm, S1, S2 without murmur, rub or gallop. ABDOMEN: Soft, nontender, nondistended, normoactive bowel sounds, no guarding, no rebound EXTREMITIES: 2+ pulses, warm. NEUROLOGICAL: Cranial nerves II through XII grossly intact. SKIN: Warm, dry, LABS Laboratory Results - last 24 hr 02/22/19 02/22/19 02/22/19 05:25 05:25 05:25 WBC RBC Hgb Hct MCV MCH MCHC RDW Plt Count MPV Absolute Neuts (auto) Neutrophils % Lymphocytes % Monocytes % Eosinophils % Basophils % Nucleated RBC % ESR 12 Sodium 144 Potassium 3.5 Chloride 107 Carbon Dioxide 27 Anion Gap 9 BUN 13.3 Creatinine 0.8 Est GFR (CKD-EPI)AfAm 100.33 Est GFR (CKD-EPI)NonAf 86.57 Random Glucose 81 Hemoglobin A1c % Calcium 9.2 Phosphorus 4.6 Magnesium 2.4 Total Bilirubin 0.6 AST 21 ALT 29 Alkaline Phosphatase 93 Creatine Kinase Troponin I < 0.02 C-Reactive Protein < 0.3 Total Protein 7.0 Albumin 3.9 Triglycerides 118 Cholesterol 186 Total LDL Cholesterol 104 H HDL Cholesterol 55 TSH 4.01 H HOSPITAL COURSE: Date of Admission:02/21/19 48 y/o F pmh of htn, gerd, hld, PUD, and gastritis presented w/ sharp Left sided chest pain of few hour duration is being managed to r/o ACS . While at the hospital, troponins x3, ekgs, Chest CT, CXR and echo were done, all came back negative for ACS. Cardiology was consulted, and they performed a nuclear stress test, which came back negative as well. Further tests including labs, blood work and rheumatological work up was done to investigate other causes of chest pain. Patient reports symptoms have resolved. Chest CT- no acute changes CXR- no acute changes EKG- sinus bradycardia (58), and TWI in v1-4 (unchanged from previous EKGs), QTc 435 Troponins x3 Date of Discharge: 02/22/19 Discharge Summary Reason For Visit: CHEST PAIN Condition: Good - Instructions Diet, Activity, Other Instructions: You were admitted to the hospital for chest pain. While you were here we monitored the function of your heart and found that it is functioning appropriately. You had an Echo done and a stress test which were both normal. Please make an appointment with the [facility] to continue to monitor the function of your heart. Please continue your home medications as prescribed. Follow up with your primary care physician within one week. Return to the Emergency Department if you have any nausea, vomiting, diarrhea, shortness of breath or worsening of your symptoms. Referrals: [facility] [Other] Jose Purdy MD [Staff Physician] - Disposition: HOME - Home Medications Comprehensive Discharge Medication List: Ambulatory Orders Amlodipine Besylate 5 mg PO DAILY 07/01/15 Lovastatin 5 mg PO DAILY 02/21/19 ATTENDING PHYSICIAN STATEMENT I saw and evaluated the patient. I reviewed the resident's note and discussed the case with the resident. I agree with the resident's findings and plan as documented. SUBJECTIVE: OBJECTIVE: ASSESSMENT AND PLAN:
[2019-02-22] MEDS ORDERED: LISINOPRIL 20 MG TABLET (FP) PO SCH (22:00)
[2019-02-22] MEDS ORDERED: ATORVASTATIN CA 10 MG TABLET (FP) PO SCH (22:00)
== END 2019-02-22 17:53 | disposition home or self-care (01) ==
LOC: JER 14:51 → INTOOBSV 19:29 → JERBED 19:29 → J4S 02-22 00:07
PROVIDERS: ADMIT Internal Medicine; ATTEND Internal Medicine
PROC: 3E013GC Introduction of Other Therapeutic Substance into Subcutaneous Tissue, Percutaneous Approach (ICD-10-PCS; principal; 2019-02-21)
DX: R07.89 Other chest pain (principal); I10 Essential (primary) hypertension; E78.5 Hyperlipidemia, unspecified; K21.9 Gastro-esophageal reflux disease without esophagitis; K27.9 Peptic ulcer, site unspecified, unspecified as acute or chronic, without hemorrhage or perforation; R00.1 Bradycardia, unspecified
CPT/HCPCS: 36415; 71045-TC-FY; 71250-TC; 78452-TC; 80053; 80061; 81003; 82550; 83036; 83721; 83735; 84100; 84443; 84484; 84703; 85025; 85379; 85651; 86038; 86140; 93005; 93010; 93017; 93306-TC; 97116-GP; 97161-GP; 99285-25; A9502; G0378